=== PATIENT | male | born 1985 | race Caucasian/White ===

== ENCOUNTER → 2017-10-10 | Outpatient (CLI) | payer OTHER ==
[~2017-10-10] MED LIST: ALBU90OI INH; AZIT250 PO; CEPH500 PO; HYDACE5 PO; IBUP200; NAPR500 PO; PRED10 PO; TRAM50 PO
== END ==
LOC: LAB SHORT 07:46 → LAB EV 07:46
DX: R21 Rash and other nonspecific skin eruption (principal)
CPT/HCPCS: 87070

== ENCOUNTER → 2018-11-09 | Outpatient (CLI) | payer OTHER ==
[2018-11-09 15:29] LABS: Adenovirus F 40/41 Not Detected (NOT DETECT); Astrovirus Not Detected (NOT DETECT); Campylobacter Sp Not Detected (NOT DETECT); Cryptosporidium Not Detected (NOT DETECT); Cyclospora Cayetanensis Not Detected (NOT DETECT); E. Coli O157 Not Detected (NOT DETECT); Entamoeba Histolytica Not Detected (NOT DETECT); Enteroaggregative E. coli-EAEC Not Detected (NOT DETECT); Enteropathogenic E. coli-EPEC Not Detected (NOT DETECT); Enterotoxigenic E. coli-ETEC Not Detected (NOT DETECT); Giardia Lamblia Not Detected (NOT DETECT); Norovirus GI/GII Not Detected (NOT DETECT); Plesiomonas Shigelloides Not Detected (NOT DETECT); Rotavirus A Not Detected (NOT DETECT); Salmonella Sp Not Detected (NOT DETECT); Sapovirus Not Detected (NOT DETECT); Shiga Toxin-prod E. coli-STEC Not Detected (NOT DETECT); Shigella/Enteroin E. coli-EIEC Not Detected (NOT DETECT); Vibrio Cholerae Not Detected (NOT DETECT); Vibrio Sp Not Detected (NOT DETECT); Yersinia Enterocolitica Not Detected (NOT DETECT)
== END | disposition home or self-care (01) ==
LOC: LAB SHORT 11:15 → LAB EV 11:15
PROVIDERS: General Practice
DX: K52.9 Noninfective gastroenteritis and colitis, unspecified (principal)
CPT/HCPCS: 87507

== ENCOUNTER → 2018-11-09 | Outpatient (CLI) | payer OTHER ==
[2018-11-09 11:33] LABS: BASOPHILS ABSOLUTE AUTO 0.03 K/mm3 (0.00-0.23); BASOPHILS PERCENT AUTO 1 % (0-2); EOSINOPHILS ABSOLUTE AUTO 0.37 K/mm3 (0.00-0.68); EOSINOPHILS PERCENT AUTO 6 % (0-6); Hematocrit 46.5 % (37.0-53.0); Hemoglobin 15.7 g/dL (13.5-17.5); IMMATURE GRAN ABSOLUTE AUTO 0.05 K/mm3 (0.00-0.10); IMMATURE GRAN PERCENT AUTO 1 % (0-1); LYMPHOCYTES ABSOLUTE AUTO 2.06 K/mm3 (0.84-5.20); LYMPHOCYTES PERCENT AUTO 32 % (21-46); MONOCYTES ABSOLUTE AUTO 1.07 K/mm3 (0.16-1.47); MONOCYTES PERCENT AUTO 17 % (4-13); Mean Corpuscular HGB 28.9 pg (26.0-34.0); Mean Corpuscular HGB Conc 33.8 g/dL (31.5-36.5); Mean Corpuscular Volume 86 fL (80-100); Mean Platelet Volume 9.1 fL (9.1-12.4); NEUTROPHILS ABSOLUTE AUTO 2.91 K/mm3 (1.96-9.15); NEUTROPHILS PERCENT AUTO 45 % (41-73); Platelet Count 356 K/mm3 (150-400); RDW Coefficient Variation 13.4 % (11.7-14.2); RDW Standard Deviation 41.7 fL (35.1-46.3); Red Blood Cell Count 5.43 M/mm3 (4.30-5.90); White Blood Cell Count 6.49 K/mm3 (4.00-11.30)
[2018-11-09 11:45] LABS: Alanine Aminotransfer (ALT/SGP 31 U/L (12-78); Albumin, Blood 3.5 g/dL (3.4-5.0); Albumin/Globulin Ratio 0.9 (0.8-1.8); Alk Phos 73 U/L (40-126); Anion Gap 8 mmol/L (6-16); Aspartate Aminotrans (AST/SGOT 24 U/L (12-37); Bilirubin, Total 0.2 mg/dL (0.1-1.0); Blood Urea Nitrogen 12 mg/dL (8-24); Bun/Creatinine Ratio 12.4 (12.0-20.0); CO2, Blood 29 mmol/L (21-32); Calcium, Blood 8.8 mg/dL (8.5-10.1); Chloride, Blood 103 mmol/L (98-108); Creatinine, Blood 0.97 mg/dL (0.60-1.20); Globulin, Blood 4.1 g/dL (2.2-4.0); Glomerular Filtration Rate >60 (60-); Glucose, Blood 89 mg/dL (70-99); Potassium, Blood 4.1 mmol/L (3.5-5.5); Sodium, Blood 140 mmol/L (136-145); Total Protein, Blood 7.6 g/dL (6.4-8.2)
== END | disposition home or self-care (01) ==
LOC: LAB SHORT 11:29 → LAB EV 11:29
PROVIDERS: General Practice
DX: E86.0 Dehydration (principal)
CPT/HCPCS: 80053; 85025

== ENCOUNTER 2019-06-18 20:20 | Emergency (ER) | payer SELFPAY ==
[~2019-06-18] VITALS: Ht 177.8 cm; Wt 95.2 kg
[2019-06-18] MEDS ORDERED: Prednisone20 MG PO (21:46)
== END 2019-06-18 22:05 | disposition home or self-care (01) ==
LOC: ER 20:20
DX: J45.901 Unspecified asthma with (acute) exacerbation (principal); Z87.891 Personal history of nicotine dependence
CPT/HCPCS: 71046; 93005; 93010; 94644; 99283-25; J7512

== ENCOUNTER 2024-06-27 08:22 | Emergency (ER) | payer SELFPAY ==
[~2024-06-27] VITALS: Ht 157.5 cm; Wt 106.1 kg
[~2024-06-27 08:22] MED LIST changes: +Prednisone20 MG PO
[2024-06-27] MEDS ORDERED: albuterol sulfate HF (08:35)
[2024-06-27] MEDS ORDERED: ZOLOFT10013 PO (08:35)
[2024-06-27 10:03] VITALS: BP 162/103
[2024-06-27] MEDS ORDERED: Dexamethasone Sod Phos 10 MG/ML 1ML VIAL PO ONE (10:25)
== END 2024-06-27 10:41 | disposition home or self-care (01) ==
LOC: ER 08:22
DX: R05.9 Cough, unspecified (principal); J45.998 Other asthma; Z87.891 Personal history of nicotine dependence; Z79.899 Other long term (current) drug therapy
CPT/HCPCS: 71046; 99284-25; J1100

== ENCOUNTER 2024-10-20 03:48 | Inpatient (IN) | payer OTHER ==
[~2024-10-20] VITALS: Ht 177.8 cm; Wt 108.0 kg
[~2024-10-20 03:48] MED LIST changes: +ZOLOFT10013 PO
[2024-10-20 04:34] LABS: BASOPHILS ABSOLUTE AUTO 0.08 K/mm3 (0.00-0.23); BASOPHILS PERCENT AUTO 0 % (0-2); EOSINOPHILS ABSOLUTE AUTO 0.05 K/mm3 (0.00-0.68); EOSINOPHILS PERCENT AUTO 0 % (0-6); Hematocrit 41.8 % (37.0-53.0); Hemoglobin 14.2 g/dL (13.5-17.5); IMMATURE GRAN ABSOLUTE AUTO 0.19 K/mm3 (0.00-0.10); IMMATURE GRAN PERCENT AUTO 1 % (0-1); LYMPHOCYTES ABSOLUTE AUTO 2.48 K/mm3 (0.84-5.20); LYMPHOCYTES PERCENT AUTO 10 % (21-46); MONOCYTES PERCENT AUTO 8 % (4-13); Mean Corpuscular HGB 29.3 pg (26.0-34.0); Mean Corpuscular Volume 86 fL (80-100); Mean Platelet Volume 9.6 fL (9.1-12.4); NEUTROPHILS ABSOLUTE AUTO 20.46 K/mm3 (1.96-9.15); NEUTROPHILS PERCENT AUTO 81 % (41-73); Platelet Count 313 K/mm3 (150-400); RDW Coefficient Variation 13.6 % (11.7-14.2); RDW Standard Deviation 42.6 fL (35.1-46.3); Red Blood Cell Count 4.85 M/mm3 (4.30-5.90); White Blood Cell Count 25.36 K/mm3 (4.00-11.30)
[2024-10-20 04:48] LABS: Magnesium, Blood 1.6 mg/dL (1.6-2.4)
[2024-10-20 04:49] LABS: Albumin, Blood 3.1 g/dL (3.4-5.0); Albumin/Globulin Ratio 0.7 (0.8-1.8); Bilirubin, Total 1.3 mg/dL (0.1-1.0); Bun/Creatinine Ratio 14.3 (12.0-20.0); Calcium, Blood 8.1 mg/dL (8.5-10.1); Creatinine, Blood 0.63 mg/dL (0.60-1.20); Globulin, Blood 4.3 g/dL (2.2-4.0); Potassium, Blood 3.7 mmol/L (3.5-5.5); Total Protein, Blood 7.4 g/dL (6.4-8.2)
[2024-10-20 05:01] LABS: Influenza A, PCR NEGATIVE (NEGATIVE); Influenza B, PCR NEGATIVE (NEGATIVE); Resp Syncytial Virus, PCR NEGATIVE (NEGATIVE); SARS-Cov-2 (COVID-19) PCR, MMC NEGATIVE (NEGATIVE)
[2024-10-20] MEDS ORDERED: CefTRIAXone Sodium 1,000 MG in NS 50 ML IV ONE (05:05)
[2024-10-20] MEDS ORDERED: Azithromycin 500 MG in NS 250 ML IV ONE (05:05)
[2024-10-20] MEDS ORDERED: NS 1,000 ML IV SCH ×2 (05:05→05:55)
[2024-10-20] MEDS ORDERED: Ipratropium/Albuterol SulF 2.5-0.5MG/3 ML Amp INH ONE (05:05)
[2024-10-20] MEDS ORDERED: Ipratropium/Albuterol SulF 2.5-0.5MG/3 ML Amp INH PRN (05:55)
[2024-10-20] MEDS ORDERED: Ondansetron HCl 2 MG / ML 2ML Vial IV PRN (05:55)
[2024-10-20] MEDS ORDERED: Acetaminophen 325 MG TABLET PO PRN (05:55)
[2024-10-20] MEDS ORDERED: FentaNYL Citrate 50 MCG/ML 2 ML Injection IV PRN (06:05)
[2024-10-20] MEDS ORDERED: Mag Sulfate 1 GM/D5% 100ML 100 ML IV STA (06:21)
[2024-10-20 06:30] VITALS: BP 154/86
--- NOTE | 2024-10-20 06:30 | NUR ---
REPORT RECEIVED FROM ED NURSE DAVID @ 6624. PT ARRIVED TO THE MEDICAL FLOOR RM [phone] @[id number] IN A GURNEY. PT TRANSFERRED INDEPENDENTLY TO THE HOSPITAL BED. PT BROUGHT ALL HIS BELONINGS WITH HIM. PT'S MOTHER BY THE BEDSIDE. DR. NICE BY THE BEDSIDE. AWAITING FOR D-DIMER RESULTS. NPO ORDER, H2O PO IS OK FOR NOW. NON-SLIP SOCKS ON. PT IS A/O X4, ABLE TO MAKE HIS NEEDS KNOWN AND COOPERATIVE WITH CARE.
[2024-10-20] MEDS ORDERED: NS 250 ML IV PRN (06:50)
[2024-10-20] MEDS ORDERED: MethylPREDNISolone Sod Succ 125 MG Vial IV SCH (07:00)
[2024-10-20 07:49] VITALS: BP 139/89
[2024-10-20] MEDS ORDERED: Enoxaparin 40 MG/0.4 ML SYR SC SCH (09:00)
[2024-10-20 10:45] LABS: Adenovirus Not Detected (NOT DETECT); Bordetella pertussis Not Detected (NOT DETECT); Chlamydophila pneumoniae Not Detected (NOT DETECT); Coronavirus 229E Not Detected (NOT DETECT); Coronavirus HKU1 Not Detected (NOT DETECT); Coronavirus NL63 Not Detected (NOT DETECT); Coronavirus OC43 Not Detected (NOT DETECT); Human Metapneumovirus Not Detected (NOT DETECT); Human Rhinovirus/Enterovirus Not Detected (NOT DETECT); Influenza A/2009-H1 Not Detected (NOT DETECT); Influenza A/H1 Not Detected (NOT DETECT); Influenza A/H3 Not Detected (NOT DETECT); Influenza B Not Detected (NOT DETECT); Mycoplasma pneumoniae Not Detected (NOT DETECT); Parainfluenza Virus 1 Not Detected (NOT DETECT); Parainfluenza Virus 2 Not Detected (NOT DETECT); Parainfluenza Virus 3 Not Detected (NOT DETECT); Parainfluenza Virus 4 Not Detected (NOT DETECT); Respiratory Syncytial Virus Not Detected (NOT DETECT); SARS-Cov-2 (COVID-19), BioFire Not Detected (NOT DETECT)
[2024-10-20 11:19] VITALS: BP 132/86
[2024-10-20 15:56] VITALS: BP 139/83
--- NOTE | 2024-10-20 18:29 | NUR ---
ADMISSION ASSESSMENT DOCUMENTATION REVIEWED BY THIS NURSE AND I AGREE WITH ASSESSMENT CHARTED BY MUMTAZ SALAMANCA, STUDENT NURSE.
--- NOTE | 2024-10-20 18:41 | NUR ---
A&Ox4, FULL CODE, SLEPT MOST OF THE DAY, WOKE TO EAT LUNCH & ATE, RIGHT SIDED CHEST PAIN & GAVE TYLENOL PER EMAR, 2 LITERS O2, IV ANTIBIOTICS & STEROIDS, SKIN INTACT, IV FLUIDS INFUSING, INDEPENDENT IN ROOM, RESPIRATORY PANEL CAME BACK NEGATIVE, WILL CALL FOR ASSISTANCE IF NEEDED
[2024-10-20 19:19] VITALS: BP 143/76
[2024-10-21 03:19] VITALS: BP 138/87
[2024-10-21 05:43] LABS: BASOPHILS ABSOLUTE AUTO 0.02 K/mm3 (0.00-0.23); BASOPHILS PERCENT AUTO 0 % (0-2); EOSINOPHILS PERCENT AUTO 0 % (0-6); Hematocrit 40.8 % (37.0-53.0); Hemoglobin 13.7 g/dL (13.5-17.5); IMMATURE GRAN ABSOLUTE AUTO 0.15 K/mm3 (0.00-0.10); IMMATURE GRAN PERCENT AUTO 1 % (0-1); LYMPHOCYTES ABSOLUTE AUTO 1.36 K/mm3 (0.84-5.20); LYMPHOCYTES PERCENT AUTO 6 % (21-46); MONOCYTES ABSOLUTE AUTO 1.24 K/mm3 (0.16-1.47); MONOCYTES PERCENT AUTO 6 % (4-13); Mean Corpuscular HGB 28.8 pg (26.0-34.0); Mean Corpuscular HGB Conc 33.6 g/dL (31.5-36.5); Mean Corpuscular Volume 86 fL (80-100); NEUTROPHILS ABSOLUTE AUTO 19.35 K/mm3 (1.96-9.15); NEUTROPHILS PERCENT AUTO 88 % (41-73); Platelet Count 295 K/mm3 (150-400); RDW Coefficient Variation 13.7 % (11.7-14.2); Red Blood Cell Count 4.76 M/mm3 (4.30-5.90); White Blood Cell Count 22.12 K/mm3 (4.00-11.30)
[2024-10-21] MEDS ORDERED: Azithromycin 500 MG in NS 250 ML IV SCH (06:00)
[2024-10-21 06:04] LABS: Albumin, Blood 2.9 g/dL (3.4-5.0); Albumin/Globulin Ratio 0.7 (0.8-1.8); Bilirubin, Total 0.2 mg/dL (0.1-1.0); Bun/Creatinine Ratio 22.3 (12.0-20.0); Calcium, Blood 9.2 mg/dL (8.5-10.1); Creatinine, Blood 0.72 mg/dL (0.60-1.20); Globulin, Blood 4.3 g/dL (2.2-4.0); Potassium, Blood 4.1 mmol/L (3.5-5.5); Total Protein, Blood 7.2 g/dL (6.4-8.2)
--- NOTE | 2024-10-21 07:19 | NUR ---
SHIFT SUMMARY: PT IS A&OX4, PLEASANT AND COOPERATIVE WITH CARE. VSS ON RA. C/O PLEURITIC CP, MEDICATED WITH PRN TYLENOL. UP AD PASTORA IN ROOM INDEPENDENTLY. TOLERATING A REGULAR DIET. UNMEASURED VOIDS IN TOILET. NO BM THIS SHIFT. BED IN LOWEST POSITION, CALL LIGHT WITHIN REACH. CALLS APPROPRIATELY AND IS ABLE TO ADVOCATE NEEDS EFFECTIVELY.
[2024-10-21 08:18] VITALS: BP 139/95
[2024-10-21] MEDS ORDERED: Sertraline HCl 100 MG Tab PO SCH (09:00)
[2024-10-21] MEDS ORDERED: CefTRIAXone Sodium 1,000 MG in NS 100 ML IV SCH (09:00)
[2024-10-21 15:59] VITALS: BP 152/92
--- NOTE | 2024-10-21 18:29 | NUR ---
A&OX4, FULL CODE, INDEPENDENT IN ROOM/BATHROOM NOW ON RA, HEADACHE EARLY AFTERNOON & GAVE MEDIATION PER EMAR, MILD RASH ON CHEST/ARM NO ITCHING OR BURNING, CONTINUE WITH ANTIBIOTICS & STEROIDS, WILL CALL FOR ASSISTANCE IF NEEDED
[2024-10-21 19:25] VITALS: BP 158/95
[2024-10-22 05:45] VITALS: BP 147/98
--- NOTE | 2024-10-22 05:47 | NUR ---
SHIFT SUMMARY PATIENT IS ALERT AND ORIENTED. PATIENT HAS HAD NO ACUTE EVENTS THIS SHIFT. VITAL SIGNS REVIEWED. PATIENT HAS BEEN IND IN ROOM. RA ALL SHIFT. BREATHING TREATMENTS REQUESTED NEEDED. PATIENT HAS NO COMPLAINTS OF SOB, NAUSEA, PAIN OR VOMITTING THIS SHIFT. ABX INFUSING ORDERED.
[2024-10-22 06:15] LABS: BASOPHILS ABSOLUTE AUTO 0.05 K/mm3 (0.00-0.23); BASOPHILS PERCENT AUTO 0 % (0-2); EOSINOPHILS ABSOLUTE AUTO 0.01 K/mm3 (0.00-0.68); EOSINOPHILS PERCENT AUTO 0 % (0-6); Hematocrit 40.5 % (37.0-53.0); Hemoglobin 13.6 g/dL (13.5-17.5); IMMATURE GRAN ABSOLUTE AUTO 0.23 K/mm3 (0.00-0.10); IMMATURE GRAN PERCENT AUTO 1 % (0-1); LYMPHOCYTES PERCENT AUTO 18 % (21-46); MONOCYTES ABSOLUTE AUTO 1.59 K/mm3 (0.16-1.47); MONOCYTES PERCENT AUTO 7 % (4-13); Mean Corpuscular HGB 28.6 pg (26.0-34.0); Mean Corpuscular HGB Conc 33.6 g/dL (31.5-36.5); Mean Corpuscular Volume 85 fL (80-100); Mean Platelet Volume 10.4 fL (9.1-12.4); NEUTROPHILS ABSOLUTE AUTO 15.98 K/mm3 (1.96-9.15); NEUTROPHILS PERCENT AUTO 74 % (41-73); Platelet Count 339 K/mm3 (150-400); RDW Coefficient Variation 14.2 % (11.7-14.2); Red Blood Cell Count 4.76 M/mm3 (4.30-5.90); White Blood Cell Count 21.76 K/mm3 (4.00-11.30)
[2024-10-22 06:36] LABS: Bun/Creatinine Ratio 26.1 (12.0-20.0); Calcium, Blood 8.6 mg/dL (8.5-10.1); Creatinine, Blood 0.73 mg/dL (0.60-1.20); Potassium, Blood 4.3 mmol/L (3.5-5.5)
[2024-10-22 08:03] VITALS: BP 153/90
[2024-10-22] MEDS ORDERED: PredniSONE 20 MG Tab PO SCH (09:00)
[2024-10-22 15:51] VITALS: BP 157/102
--- NOTE | 2024-10-22 15:53 | NUR ---
PT REQUESTED BREATHING TREATMENT AT 1550. THIS VICE PRESIDENT OF ENGINEERING CALLED 3RD FLOOR RT TO REQUEST BREATHING TREATMENT FOR THE PT.
--- NOTE | 2024-10-22 17:07 | NUR ---
SUMMARY- AAOX4. ON RA. IND IN ROOM. NO COMPLAINTS OF PAIN THIS SHIFT. NO ACUTE EVENTS THIS SHIFT. PT HAD A FEW PRN BREATHING TREATMENTS THIS SHIFT. GOOD APPETITE. PT CALM AND COOPERATIVE. ORDERED SPUTUM SAMPLE SENT THIS SHIFT.
[2024-10-22 19:34] VITALS: BP 155/99
[2024-10-22] MEDS ORDERED: Lactobacil 2-S.Thermo-Bifido 1 1 Cap PO SCH (21:00)
[2024-10-23 02:09] VITALS: BP 154/101
--- NOTE | 2024-10-23 04:05 | NUR ---
SHIFT SUMMARY PATIENT IS ALERT AND ORIENTED. PATIENT HAS HAD NO ACUTE EVENTS THIS SHIFT. VITAL SIGNS REVIEWED THIS SHIFT. PATIENT HAS COMPLAINED ON LEG PAIN THIS SHIFT AND MEDICATED PER EMAR. PATIENT HAS REQUESTED MULTIPLE BREATHING TREATMENTS THIS SHIFT. PATIENT HAS NO COMPLAINTS OF SOB, NAUSEA OR VOMITTNG THIS SHIFT. PATIENT HAS BEEN IND THIS SHIFT. BED IN LOCKED AND LOWEST POSITION. POSSIBLE DISCHARGE HOME TODAY.
[2024-10-23 06:25] LABS: BASOPHILS ABSOLUTE AUTO 0.13 K/mm3 (0.00-0.23); BASOPHILS PERCENT AUTO 1 % (0-2); EOSINOPHILS ABSOLUTE AUTO 0.28 K/mm3 (0.00-0.68); EOSINOPHILS PERCENT AUTO 2 % (0-6); Hematocrit 40.4 % (37.0-53.0); Hemoglobin 13.3 g/dL (13.5-17.5); IMMATURE GRAN ABSOLUTE AUTO 0.49 K/mm3 (0.00-0.10); IMMATURE GRAN PERCENT AUTO 3 % (0-1); LYMPHOCYTES ABSOLUTE AUTO 5.01 K/mm3 (0.84-5.20); LYMPHOCYTES PERCENT AUTO 30 % (21-46); MONOCYTES PERCENT AUTO 10 % (4-13); Mean Corpuscular HGB 28.4 pg (26.0-34.0); Mean Corpuscular HGB Conc 32.9 g/dL (31.5-36.5); Mean Corpuscular Volume 86 fL (80-100); Mean Platelet Volume 10.3 fL (9.1-12.4); NEUTROPHILS ABSOLUTE AUTO 8.86 K/mm3 (1.96-9.15); NEUTROPHILS PERCENT AUTO 54 % (41-73); Platelet Count 313 K/mm3 (150-400); RDW Coefficient Variation 14.2 % (11.7-14.2); RDW Standard Deviation 44.5 fL (35.1-46.3); Red Blood Cell Count 4.69 M/mm3 (4.30-5.90); White Blood Cell Count 16.47 K/mm3 (4.00-11.30)
[2024-10-23 06:45] LABS: Bun/Creatinine Ratio 20.9 (12.0-20.0); Calcium, Blood 8.5 mg/dL (8.5-10.1); Creatinine, Blood 0.72 mg/dL (0.60-1.20); Potassium, Blood 3.8 mmol/L (3.5-5.5)
[2024-10-23 08:20] VITALS: BP 141/100
[2024-10-23] MEDS ORDERED: Acetaminophen650 M1 PO (13:04)
[2024-10-23] MEDS ORDERED: IPRAT-ALBUT 0.5-3 ML INH (13:06)
[2024-10-23] MEDS ORDERED: PRED20 PO (13:07)
[2024-10-23] MEDS ORDERED: VISBIOME 112.51 EACH PO (13:08)
[2024-10-23] MEDS ORDERED: AMOCLA875 PO (13:09)
--- NOTE | 2024-10-23 14:09 | NUR ---
DISCHARGE SUMMARY PT WAS EDUCATED ON NEW PRESCRIPTIONS AND F/U APPOINTMENT. PT SENT HOME WITH DISCHARGE PAPERWORK AND LEFT THROUGH THE [facility] ENTRANCE VIA WHEELCHAIR.
--- NOTE | 2024-10-23 15:58 | NUR ---
PLEASE SEE STUDENT NOTES FOR DISCHARGE SUMMARY. THIS [employer]OP MAKER HELPER MACHINE HAS REVIEWED AND AGREES.
== END 2024-10-23 13:44 | disposition home or self-care (01) | DRG 871 ==
LOC: ER 03:48 → ERHOLD 05:21 → MEDS 05:21
PROVIDERS: Family Medicine; Internal Medicine; Student in an Organized Health Care Education/Training Program; ADMIT Internal Medicine
DX: A41.9 Sepsis, unspecified organism (principal); J18.9 Pneumonia, unspecified organism; J96.01 Acute respiratory failure with hypoxia; J45.901 Unspecified asthma with (acute) exacerbation; R65.20 Severe sepsis without septic shock; E66.9 Obesity, unspecified; G47.33 Obstructive sleep apnea (adult) (pediatric); F32.A Depression, unspecified; I10 Essential (primary) hypertension; Z79.899 Other long term (current) drug therapy; Z87.891 Personal history of nicotine dependence; Z68.26 Body mass index [BMI] 26.0-26.9, adult
CPT/HCPCS: 0202U; 0241U; 36415; 71046; 80048; 80053; 83605; 83735; 83880; 84145; 85025; 85379; 87040; 87070; 87205; 93005; 93010; 94640; 94664; 94760; 94762; 99285-25; A9270; J0456; J0696; J1650; J2919; J3475; J7030; J7050; J7512